=== PATIENT | male | born 1975 | race Caucasian/White ===

== ENCOUNTER 2018-09-27 12:02 | Emergency (ER) | payer MEDICAID ==
[2018-09-27] MEDS: LOPERAMIDE 2 MG CAP PO (12:32)
[2018-09-27] MEDS: ONDANSETRON (ODT) 4 MG TAB ODT (12:32)
== END 2018-09-27 12:55 | disposition home or self-care (01) ==
LOC: E/R 12:02
DX: R11.2 Nausea with vomiting, unspecified (principal); R19.7 Diarrhea, unspecified
CPT/HCPCS: 82962; 99283